=== PATIENT | female | born 1980 | race Caucasian/White ===

== ENCOUNTER 2017-10-06 14:04 | Inpatient (IN) | payer MEDICAID ==
[~2017-10-06] VITALS: Ht 165.1 cm; Wt 62.8 kg
[2017-10-06 14:42] VITALS: BP 95/54; PULSE 65; Ht 165.1 cm; Wt 62.8 kg
--- NOTE | 2017-10-06 15:40 | RADRPT ---
PROCEDURE: US OB biophysical profile. CLINICAL INDICATION: Post dates TECHNIQUE: Multiple sonographic images of the pelvis were obtained. The images were reviewed on a PACS workstation. COMPARISON: None FINDINGS: There is a single live intrauterine , in cephalic presentation. A normal heart rate i s identified measuring 128 beats per minute. The amniotic fluid index is within normal limits measur ing 12.6 cm. The placenta is grade II, located fundally. Biophysical profile: movement 2/2 tone 2/2. breathing 2/2 MARILEE 2/2 Total 05/27 IMPRESSION: 1. Biophysical profile score of 88. 2. Single live intrauterine in cephalic presentation with normal heart rate of 128 b pm. 3. Normal amniotic fluid index of 12.6 cm. RPTAT: AAPP Physician Clarence Date Time Electronically viewed and signed by Physician Clarence on 10/06/2017 15:39 ARMANDO/
--- NOTE | 2017-10-06 15:48 | RADRPT ---
PROCEDURE: US OB. CLINICAL INDICATION: Post dates TECHNIQUE: Multiple sonographic images of the pelvis were obtained. The images were reviewed on a PACS workstation. COMPARISON: October 06, 2017 FINDINGS: The a single live intrauterine is identified, with cephalic presentation. Positive movement and cardiac activity is identified. heart rate is within normal limits measuring 132 bpm. anatomic evaluation is limited due to late gestational age. The placenta is grade II, located fundally. The following measurements were obtained: The biparietal diameter measures 9.3 cm. The head circumference measures 34 cm. The abdominal circum ference, measures 38 cm and femur length measures 7.9 cm. This corresponds to a mean gestational age of 39 weeks and 4 days. Estimated weight is 4087 g +/- 613 g. The calculated 2-D ratios are w ith normal limits. The amniotic fluid index is with normal limits measuring 12.6 cm. IMPRESSION: 1. Single live intrauterine in cephalic presentation. The measured gestational age is appr oximately 39 weeks and 4 days by ultrasound criteria. Estimated due date is October 09, 2017. 2. Estimated weight is 4087 g +/- 613 g. This is within the 77%. RPTAT: AAPP Physician Clarence Date Time Electronically viewed and signed by Physician Clarence on 10/06/2017 15:47 JL/
[2017-10-06] MEDS ORDERED: MISOPROSTOL 200 MCG TAB PR PRN (17:00)
[2017-10-06] MEDS ORDERED: CARBOPROST 250 MCG INJ IM PRN (17:00)
[2017-10-06] MEDS ORDERED: LIDOCAINE 1% (MPF) 30 ML INJ INJ PRN (17:00)
[2017-10-06] MEDS ORDERED: BUTORPHANOL 2 MG INJ IV PRN ×2 (17:00)
[2017-10-06] MEDS ORDERED: METHYLERGONOVINE 0.2 MG INJ IM PRN (17:00)
[2017-10-06] MEDS ORDERED: DINOPROSTONE 10 MG VAG SUPP VAG ONE (17:00)
--- NOTE | 2017-10-06 17:25 | HP ---
Date/Time of Note Date/Time of Note DATE: 10/06/17 TIME: 17:04 OB - History Hx of Present Free Text/Dictation 37 years old female EDC October 01, 2017 admitted to [facility] at 40 weeks and 5 days for induction of labor. Pelvic examination on admission cervix long and closed vertex at -1 -2 station. Patient offered 2 options 1, expecting management with regard to biophysical profile 8 she may go home and return to the hospital when in active labor, 2; option induction of labor,she preferred the second option, with regard to ultrasound report and estimated weight over 4000 g the possibility of shoulder dystocia explained, she would like to proceed with induction Chief Complaint: Labor contract Estimated Due Date: Oct 01, 2017 : 1 Para: 0 Care: Good Care Ultrasounds: Normal mid trimester US Obstetrical Complications: None Medical Complications: None Past Family/Social History * Past Medical, Surgical, Family and Obstetric Histories reviewed from chart. Rubella: immune RPR/VDRL: Negative GBS Status: Negative HBsAG: Negative OB Admission Exam Vital Signs Vital Signs Vital Signs Date Time Temp Pulse Resp B/P Pulse Ox O2 Delivery O2 Flow Rate FiO2 10/06/17 14:42 98.3 65 95/54 Physical Exam HEENT: WNL Heart: Rhythm Normal Lungs: Clear, Equal Abdomen: WNL Extremities: Normal Cervical Dilatation: None Effacement: 50% Station: -2 Membranes: Intact Heart Rate: 130's Accelerations: Accelerations Present Decelerations: No Decelerations Varibility: Moderate Intensity: Mild OB Assessment/Plan Reason for admission: other (Labor contraction) Other plan: 37 years old EDC October 01 admitted at 40 weeks and 5/ 7 in early labor , she had biophysical profile with estimated weight ,biophysical profile 8 8 estimated weight 4000 gm, possibility of shoulder dystocia and brachial palsy explained, she would like to proceed with trial of labor. MONICA NEGRO MD Oct 06, 2017 17:15
[2017-10-06] MEDS: LACTATED RINGER'S 1,000 ML IV SCH (17:27)
[2017-10-06 18:10] LABS: BASOPHILS % 0.2 % (0.0-2.0); EOSINOPHILS % 0.4 % (0.0-7.0); HEMATOCRIT 31.1 % (37.0-47.0); HEMOGLOBIN 11.1 g/dl (12.0-16.0); LYMPHOCYTES # 1.4 10^3/ul (0.8-2.9); MEAN CORPUSCULAR HEMOGLOBIN 34.3 pg (29.0-33.0); MEAN CORPUSCULAR HGB CONC 35.7 g/dl (32.0-37.0); MEAN PLATELET VOLUME 9.8 fl (7.4-10.4); MONOCYTE # 0.4 10^3/ul (0.3-0.9); MONOCYTES % 8.5 % (0.0-11.0); NEUTROPHIL # 3.3 10^3/ul (1.6-7.5); NEUTROPHILS % 63.7 % (39.0-77.0); PLATELET COUNT 205 10^3/UL (140-415); RED BLOOD COUNT 3.24 10^6/ul (4.20-5.40); RED CELL DISTRIBUTION WIDTH 11.9 % (11.5-14.5); WHITE BLOOD COUNT 5.2 10^3/ul (4.8-10.8)
[2017-10-06] MEDS ORDERED: PNV11TAB PO (18:15)
[2017-10-06 18:22] LABS: INR 0.89; PROTIME 12.1 Sec (11.9-14.9); PT RATIO 0.9
[2017-10-06 18:23] LABS: PARTIAL THROMBOPLASTIN TIME 27.7 Sec (25.0-35.0)
[2017-10-07] MEDS: LACTATED RINGER'S 1,000 ML IV SCH ×2 (01:29→08:23)
[2017-10-07] MEDS ORDERED: CEFAZOLIN 2 GM/50 ML (PMX) 50 ML IVPB ONE (13:00)
[2017-10-07] MEDS ORDERED: OXYTOCIN 10 UNIT INJ ONE ×2 (16:36→17:14)
[2017-10-07] MEDS ORDERED: morphine SULFATE/PF (10 MG/10 ML) INJ ONE (16:36)
[2017-10-07] MEDS ORDERED: EPHEDrine SULFATE 50 MG/5 ML SYG ONE (16:36)
[2017-10-07] MEDS ORDERED: ONDANSETRON 4 MG INJ ONE (16:36)
[2017-10-07] MEDS ORDERED: OXYTOCIN 30 UNITS/LR 500 ML IV ONE (16:36)
[2017-10-07] MEDS ORDERED: METOCLOPRAMIDE 10 MG INJ ONE (16:36)
--- NOTE | 2017-10-07 17:50 | OPR ---
Operative Report Planned Procedure Free Text/Dictation 7 years old female EDC October 01, 2017 admitted at 40 weeks and 6 days for induction of labor due to the failed induction and patient refusal of further trial of induction in labor requested delivery pros and cons risk and complication from this procedure discussed with the patient including but not limited to bowel bladder injury infection hemorrhage and hematoma of the wound she she is requesting delivery Procedure date Oct 07, 2017 Procedure(s) Primary section Performed by see signature line Heel Molder none Anesthesiologist: PAPI JENSEN MD Pre-procedure diagnosis 40 weeks 6 days failed induction declined further trial of labor requesting delivery. Anesthesia Type: spinal Post-Procedure Post-procedure diagnosis Same as above Findings Live Baby boy 9 and 9 Estimated Blood Loss: 600 - 700 mls Specimen(s) None Grafts/Implant(s) none Complication(s) none Pt Condition post procedure: stable (Stable) Procedure Description Under satisfactory spinal anesthesia patient prepped and draped and placed in supine position. Pfannenstiel incision was made. Incision carried through the subcutaneous tissue. Fascia incised to the length of incision. Rectus muscle divided in midline. Peritoneum exposed and entered to a vertical incision. Exploration of abdomen revealed [gravid uterus at term normal-appearing tubes and ovaries.] Bladder flap was developed. Transverse incision was made in the lower segment of the uterus. Amniotic sac ruptured, [clear amniotic fluid noted. ] Live baby boy was delivered from unengaged vertex.Naso oropharyngeal suction was performed. Baby handed to the team for immediate attention. Patient received 20 units of Pitocin. Placenta delivered manually intact. Uterine cavity cleaned with a wet sponge and drainage established. Uterus closed in 2 layers using Monocryl #1 in continuous fashion. Peritoneal cavity irrigated with warm saline. Sponge needle instrument reported to be correct. Abdominal peritoneum closed with 2-0 chromic catgut continuously. Fascia closed with #1 PDS in a continuous fashion. Subcutaneous tissue irrigated with warm saline and approximated with 2-0 chromic catgut skin closed with N sorb. Estimated blood loss [6-700 cc]. Urine bag containing [200] mL of [clear] urine. Patient tolerated procedure well and transferred to recovery room in good condition. MONICA NEGRO MD Oct 07, 2017 17:50
[2017-10-07] MEDS ORDERED: morphine SULFATE/PF (10 MG/10 ML) INJ SPINAL ONE (18:00)
[2017-10-07] MEDS ORDERED: morphine 4 MG/ML VIAL IV PRN (18:00)
[2017-10-07] MEDS ORDERED: EPHEDrine SULFATE 50 MG/5 ML SYG IV PRN (18:00)
[2017-10-07] MEDS ORDERED: NALOXONE (0.4 MG/ML) INJ IV PRN (18:00)
[2017-10-07] MEDS ORDERED: morphine 2 MG INJ IV PRN (18:00)
[2017-10-07] MEDS ORDERED: ONDANSETRON 4 MG INJ IV PRN (18:00)
[2017-10-07] MEDS ORDERED: DIPHENHYDRAMINE 50 MG INJ IV PRN (18:00)
[2017-10-07] MEDS: OXYTOCIN 30 UNITS/LR 500 ML IV PRN ×2 (18:41→20:48)
[2017-10-07] MEDS: KETOROLAC 30 MG INJ IV PRN (20:05)
[2017-10-07 21:30] VITALS: BP 113/64; PULSE 72; RESP 20
[2017-10-07] MEDS ORDERED: CEFAZOLIN 1 GM/50 ML (PMX) 50 ML IVPB SCH (21:30)
[2017-10-07] MEDS ORDERED: LANOLIN 7 GM TUBE TOP PRN (21:30)
[2017-10-07] MEDS ORDERED: CARBOPROST 250 MCG INJ IM PRN (21:30)
[2017-10-07] MEDS ORDERED: MISOPROSTOL 200 MCG TAB PR PRN (21:30)
[2017-10-07] MEDS ORDERED: METHYLERGONOVINE 0.2 MG INJ IM PRN (21:30)
[2017-10-07] MEDS ORDERED: OXYTOCIN 30 UNITS/LR 500 ML IV PRN (21:30)
[2017-10-08 00:23] VITALS: BP 102/61; PULSE 67; RESP 17
[2017-10-08] MEDS: OXYTOCIN 30 UNITS/LR 500 ML IV SCH ×3 (01:36→11:50)
[2017-10-08 03:35] VITALS: BP 107/66; PULSE 66; RESP 18
[2017-10-08] MEDS: KETOROLAC 30 MG INJ IV PRN (05:37)
[2017-10-08 08:15] VITALS: BP 85/50; PULSE 70; RESP 18
[2017-10-08] MEDS: SENNA/DOCUSATE NA (8.6MG/50MG) TAB PO SCH ×2 (09:06→21:53)
--- NOTE | 2017-10-08 09:57 | QN ---
Documentation Comment Post day 1 Afebrile. Vital signs are stable. Abdomen soft. Incision dry. Bowel sounds present. Lochia moderate. Extremities normal. Ambulation encouraged. Current Medications Medications (Trade) Dose Ordered Sig/Fredi Route PRN Reason Start Time Stop Time Status Last Admin Dose Admin Lactated Ringer's (Lr) 1,000 ml @ 125 mls/hr Q8H IV 10/06/17 16:53 10/07/17 21:09 DC 10/07/17 08:23 Dinoprostone (Cervidil Vaginal Supp) 10 mg ONCE ONCE VAG 10/06/17 17:00 10/06/17 17:01 DC 10/06/17 21:14 Butorphanol Tartrate (Stadol) 1 mg Q2H PRN IV PAIN 10/06/17 17:00 10/07/17 21:09 DC Butorphanol Tartrate (Stadol) 2 mg Q2H PRN IV PAIN 10/06/17 17:00 10/07/17 21:09 DC 10/07/17 03:52 Lidocaine 30 ml 30 ml ONCE PRN INJ EPISIOTOMY/TEARING 10/06/17 17:00 10/07/17 21:09 DC Oxytocin/Lactated Ringer's 500 ml @ 0 mls/hr ONCE PRN IV For Hemorrhage Management 10/06/17 17:00 10/07/17 21:09 DC 10/07/17 20:48 Methylergonovine Maleate (Methergine) 0.2 mg ONCE PRN IM VAGINAL BLEEDING 10/06/17 17:00 10/07/17 21:09 DC Carboprost Tromethamine (Hemabate) 250 mcg ONCE PRN IM VAGINAL BLEEDING 10/06/17 17:00 10/07/17 21:09 DC Misoprostol 1000 mcg 1,000 mcg ONCE PRN AK VAGINAL BLEEDING 10/06/17 17:00 10/07/17 21:09 DC Cefazolin Sodium/ Dextrose (Ancef 2 Gm/50 ml (Pmx)) 50 ml @ 100 mls/hr ONCE ONCE IVPB 10/07/17 13:00 10/07/17 13:29 DC Ephedrine Sulfate 50 mg 50 mg STK-MED ONCE .ROUTE 10/07/17 16:36 10/07/17 16:37 DC Oxytocin/Lactated Ringer's 500 ml @ ud STK-MED ONCE IV 10/07/17 16:36 10/07/17 16:37 DC Morphine Sulfate (Duramorph) 10 mg STK-MED ONCE .ROUTE 10/07/17 16:36 10/07/17 16:37 DC Ondansetron HCl (Zofran Inj) 4 mg STK-MED ONCE .ROUTE 10/07/17 16:36 10/07/17 16:37 DC Metoclopramide HCl (Reglan) 10 mg STK-MED ONCE .ROUTE 10/07/17 16:36 10/07/17 16:37 DC Oxytocin (Oxytocin) 10 units STK-MED ONCE .ROUTE 10/07/17 16:36 10/07/17 16:37 DC Oxytocin (Oxytocin) 10 units STK-MED ONCE .ROUTE 10/07/17 17:14 10/07/17 17:15 DC Naloxone HCl (Narcan) 0.1 mg Q2M PRN IV FOR RESP RATE 8 OR LESS 10/07/17 18:00 10/08/17 17:59 Ketorolac Tromethamine (Toradol) 30 mg Q6H PRN IV PAIN 10/07/17 18:00 10/08/17 17:59 10/08/17 05:37 Morphine Sulfate (morphine) 2 mg Q3H PRN IV PAIN LEVEL 1-5 10/07/17 18:00 10/08/17 17:59 Morphine Sulfate (morphine) 4 mg Q3H PRN IV PAIN LEVEL 6-10 10/07/17 18:00 10/08/17 17:59 Diphenhydramine HCl (Benadryl) 25 mg Q6H PRN IV ITCHING 10/07/17 18:00 10/08/17 17:59 Ondansetron HCl (Zofran Inj) 4 mg Q6H PRN IV NAUSEA AND/OR VOMITING 10/07/17 18:00 10/08/17 17:59 Morphine Sulfate (Duramorph) 0.3 mg GIVEN ANESTH ONCE SPINAL 10/07/17 18:00 10/07/17 18:02 DC Ephedrine Sulfate 5 mg [id number] PRN IV BLOOD PRESSURE SUPPORT 10/07/17 18:00 10/07/17 21:09 DC Acetaminophen/ Hydrocodone Bitart ([place] (5/325)) 1 tab Q4H PRN PO PAIN LEVEL 4-6 10/08/17 18:00 Acetaminophen/ Hydrocodone Bitart ([place] (5/325)) 2 tab Q4H PRN PO PAIN LEVEL 7-10 10/08/17 18:00 Oxycodone/ Acetaminophen (Percocet (5/ 325)) 1 tab Q4H PRN PO PAIN LEVEL 4-6 10/08/17 18:00 Oxycodone/ Acetaminophen (Percocet (5/ 325)) 2 tab Q4H PRN PO PAIN LEVEL 7-10 10/08/17 18:00 Ibuprofen (Motrin) 600 mg Q6 PO 10/08/17 18:00 Simethicone (Mylicon) 160 mg Q8H PRN PO DISTENSION/GAS/BLOATING 10/07/17 21:30 Senna/Docusate Sodium (Senokot-S) 1 tab BID PO 10/08/17 09:00 10/08/17 09:06 Lanolin (Ddd-Q-Xmjddo) 1 applic BEDSIDE MEDICATION PRN TOP BEDSIDE FOR EL TO NIPPLES 10/07/17 21:30 Diphtheria/ Tetanus/Acell Pertussis 0.5 ml 0.5 ml ONCE ONCE IM* 10/10/17 09:00 10/10/17 09:01 Oxytocin/Lactated Ringer's 500 ml @ 0 mls/hr ONCE PRN IV For Hemorrhage Management 10/07/17 21:30 Methylergonovine Maleate (Methergine) 0.2 mg ONCE PRN IM VAGINAL BLEEDING 10/07/17 21:30 Carboprost Tromethamine (Hemabate) 250 mcg ONCE PRN IM VAGINAL BLEEDING 10/07/17 21:30 Misoprostol 1000 mcg 1,000 mcg ONCE PRN [place] VAGINAL BLEEDING 10/07/17 21:30 Cefazolin Sodium 50 ml @ 100 mls/hr ONCE IVPB 10/07/17 21:30 10/07/17 21:59 DC 10/08/17 00:18 Oxytocin/Lactated Ringer's 500 ml @ 125 mls/hr Q4H IV 10/07/17 21:05 10/08/17 05:36 MONICA NEGRO MD Oct 08, 2017 09:57
[2017-10-08 10:44] LABS: BASOPHILS % 0.3 % (0.0-2.0); EOSINOPHILS % 0.2 % (0.0-7.0); HEMATOCRIT 28.9 % (37.0-47.0); HEMOGLOBIN 10.3 g/dl (12.0-16.0); LYMPHOCYTES # 1.4 10^3/ul (0.8-2.9); MEAN CORPUSCULAR HEMOGLOBIN 34.1 pg (29.0-33.0); MEAN CORPUSCULAR HGB CONC 35.6 g/dl (32.0-37.0); MEAN CORPUSCULAR VOLUME 95.7 fl (82.0-101.0); MEAN PLATELET VOLUME 9.5 fl (7.4-10.4); MONOCYTE # 0.5 10^3/ul (0.3-0.9); MONOCYTES % 5.8 % (0.0-11.0); NEUTROPHILS % 78.5 % (39.0-77.0); PLATELET COUNT 163 10^3/UL (140-415); RED BLOOD COUNT 3.02 10^6/ul (4.20-5.40); RED CELL DISTRIBUTION WIDTH 11.9 % (11.5-14.5)
[2017-10-08 12:01] VITALS: BP 97/53; PULSE 72; RESP 18
[2017-10-08 16:40] VITALS: BP 90/56; PULSE 76; RESP 18
[2017-10-08] MEDS: IBUPROFEN 600 MG TAB PO SCH (17:57)
[2017-10-08] MEDS ORDERED: HYDROCODONE/APAP (5/325) TAB PO PRN ×2 (18:00)
[2017-10-08] MEDS ORDERED: OXYCODONE/ACETAMINOPHEN (5/325) TAB PO PRN ×2 (18:00)
[2017-10-08 19:55] VITALS: BP 94/57; PULSE 70; RESP 17
[2017-10-09] MEDS: IBUPROFEN 600 MG TAB PO SCH ×4 (02:07→18:05)
[2017-10-09 04:00] VITALS: BP 82/45; PULSE 61; RESP 18
[2017-10-09 08:10] VITALS: BP 93/50; PULSE 68
[2017-10-09] MEDS: SENNA/DOCUSATE NA (8.6MG/50MG) TAB PO SCH ×2 (08:41→21:55)
[2017-10-09] MEDS ORDERED: NA PHOSPHATE/BIPHOS 133 ML ENEMA PR ONE (10:30)
--- NOTE | 2017-10-09 10:31 | QN ---
Documentation Comment Post day 2 Afebrile vital signs are stable Abdomen soft. Bowel sounds present. Incision dry. No bowel movement enema recommended. MONICA NEGRO MD Oct 09, 2017 10:31
[2017-10-09] MEDS: FERROUS SULFATE (EC) 325 MG TAB PO SCH ×2 (11:50→21:55)
[2017-10-09 12:10] VITALS: BP 94/50; PULSE 76; RESP 19
[2017-10-09 16:00] VITALS: BP 108/55; PULSE 78; RESP 18
[2017-10-09 19:50] VITALS: BP 107/54; PULSE 83; RESP 19
[2017-10-10] MEDS: IBUPROFEN 600 MG TAB PO SCH ×4 (00:05→17:48)
[2017-10-10 03:50] VITALS: BP 96/59; PULSE 66; RESP 19
[2017-10-10] MEDS ORDERED: DIPHTH/TET/ACEL PERTUSS (ADULT) 0.5 ML VIAL IM* ONE (09:00)
[2017-10-10 09:20] LABS: BASOPHILS % 0.4 % (0.0-2.0); EOSINOPHILS # 0.1 10^3/ul (0.0-0.5); EOSINOPHILS % 0.8 % (0.0-7.0); HEMATOCRIT 27.8 % (37.0-47.0); HEMOGLOBIN 9.7 g/dl (12.0-16.0); LYMPHOCYTES # 1.5 10^3/ul (0.8-2.9); LYMPHOCYTES % 20.6 % (15.0-51.0); MEAN CORPUSCULAR HEMOGLOBIN 33.6 pg (29.0-33.0); MEAN CORPUSCULAR HGB CONC 34.9 g/dl (32.0-37.0); MEAN CORPUSCULAR VOLUME 96.2 fl (82.0-101.0); MEAN PLATELET VOLUME 9.4 fl (7.4-10.4); MONOCYTE # 0.4 10^3/ul (0.3-0.9); MONOCYTES % 5.7 % (0.0-11.0); NEUTROPHIL # 5.4 10^3/ul (1.6-7.5); PLATELET COUNT 196 10^3/UL (140-415); RED BLOOD COUNT 2.89 10^6/ul (4.20-5.40); WHITE BLOOD COUNT 7.5 10^3/ul (4.8-10.8)
[2017-10-10] MEDS: SENNA/DOCUSATE NA (8.6MG/50MG) TAB PO SCH (09:27)
[2017-10-10] MEDS: FERROUS SULFATE (EC) 325 MG TAB PO SCH (09:27)
--- NOTE | 2017-10-10 16:53 | PD.PPDC ---
[facility] Discharge Instruction Condition Patient Condition: Good Diet Diet: Resume Regular Diet Activity/Restrictions Activity: Normal Activity May Shower Restrictions: No Exercising No Lifting No Driving No Sexual Activity Nothing in the Vagina No [place] No Tampons, douche Wound/Drain Care Instructions Wound/Drain Care Instructions: Remove Steri Strips in 1 week Follow-up Follow-up with Physician: 1, Week/Weeks Provider Information: instruction given recommended to make appointment to be seen at the clinic in 1 week Return to clinic for [employer] Instructions: Fever greater than 101 Chills Worsening abdominal pain Excessive Vaginal Bleeding More than 2 pads per hour Unable to tolerate diet OB Instructions: Breast Tenderness Depression Blurried Vision Headache MONICA NEGRO MD Oct 10, 2017 16:53
--- NOTE | 2017-10-10 16:57 | DS ---
Date/Time of Note Date/Time of Note DATE: 10/10/17 TIME: 16:54 Discharge Summary Admission/Discharge Info Admit Date/Time Oct 06, 2017 at 16:40 Discharge Date/Time October 10, 2017 at 1630 Discharge Diagnosis Date 3 post primary Patient Condition: Good Procedures Primary Hx of Present Illness Term failed to progress declined further trial of labor. Requested section delivery. Hospital Course Satisfactory recovery uneventful. On the day of discharge incision inspected found free of inflammation and infection she was discharged home with follow-up instructions to be seen at the clinic in 1 week Home Meds Reported Medications [id number] ( 19) 1 Each Tablet, 1 TAB PO DAILY, TAB 10/06/17 Follow-up Plan Post instructions given. Recommended to make appointment to be seen at the clinic in 1 week Primary Care Provider Not On Staff Doctor Time spent on discharge: < 30 minutes Pending Labs Laboratory Tests Test 10/10/17 09:04 White Blood Count 7.510^3/ul (4.8-10.8) Red Blood Count 2.8910^6/ul (4.20-5.40) Hemoglobin 9.7g/dl (12.0-16.0) Hematocrit 27.8% (37.0-47.0) Mean Corpuscular Volume 96.2fl (82.0-101.0) Mean Corpuscular Hemoglobin 33.6pg (29.0-33.0) Mean Corpuscular Hemoglobin Concent 34.9g/dl (32.0-37.0) Red Cell Distribution Width 12.0% (11.5-14.5) Platelet Count 76703^3/UL (140-415) Mean Platelet Volume 9.4fl (7.4-10.4) Neutrophils % 72.0% (39.0-77.0) Lymphocytes % 20.6% (15.0-51.0) Monocytes % 5.7% (0.0-11.0) Eosinophils % 0.8% (0.0-7.0) Basophils % 0.4% (0.0-2.0) Nucleated Red Blood Cells % 0.0/100WBC (0.0-0.0) Neutrophils # 5.410^3/ul (1.6-7.5) Lymphocytes # 1.510^3/ul (0.8-2.9) Monocytes # 0.410^3/ul (0.3-0.9) Eosinophils # 0.110^3/ul (0.0-0.5) Basophils # 0.010^3/ul (0.0-0.1) Nucleated Red Blood Cells # 0.010^3/ul (0.0-0.0) MONICA NEGRO MD Oct 10, 2017 16:57
== END 2017-10-10 18:50 | disposition home or self-care (01) | DRG 766 ==
LOC: OBT 14:04 → L-D 14:07 → OBT 16:40 → L-D 16:40 → PP1 10-07 21:22
PROVIDERS: ADMIT Obstetrics & Gynecology; ATTEND Obstetrics & Gynecology
PROC: 10D00Z1 Extraction of Products of Conception, Low, Open Approach (ICD-10-PCS; principal; 2017-10-07 16:30)
DX: O61.0 Failed medical induction of labor (principal); O48.0 Post-term pregnancy; Z3A.40 40 weeks gestation of pregnancy; Z37.0 Single live birth
CPT/HCPCS: 76815; 76818; 85025; 85610; 85730; 86592; 86885; 86900; 86901; 90715; 94760; 99464; G0463; J0595; J0690; J1885; J2210; J2274; J2405; J2590; J2765; J7120